=== PATIENT | male | born 1970 | race Caucasian/White ===

== ENCOUNTER 2017-06-22 21:28 | Emergency (ER) | payer OTHER, BC ==
[2017-06-23 00:33] VITALS: BP 142/98; PULSE 75; RESP 16; TEMP 97.6; O2SAT 99
== END 2017-06-22 22:34 | disposition home or self-care (01) | DRG 558 ==
LOC: ED 21:28
DX: M75.41 Impingement syndrome of right shoulder (principal)
CPT/HCPCS: 99282